=== PATIENT | female | born 1970 | race Caucasian/White ===

== ENCOUNTER 2016-06-19 13:51 | Emergency (ER) | payer OTHER ==
[2016-06-19 15:30] VITALS: BP 158/98
== END 2016-06-19 15:42 | disposition home or self-care (01) ==
LOC: ED 13:51
DX: G89.29 Other chronic pain (principal); M54.9 Dorsalgia, unspecified; J45.909 Unspecified asthma, uncomplicated; I10 Essential (primary) hypertension; Z98.51 Tubal ligation status
CPT/HCPCS: J1100; J2270; Q0162

== ENCOUNTER 2016-08-23 18:20 | Emergency (ER) | payer OTHER ==
[2016-08-23 20:18] VITALS: BP 127/94
== END 2016-08-23 20:18 | disposition home or self-care (01) ==
LOC: ED 18:20
DX: R05 Cough (principal); J45.909 Unspecified asthma, uncomplicated; G89.29 Other chronic pain; M54.9 Dorsalgia, unspecified; I10 Essential (primary) hypertension; Z88.6 Allergy status to analgesic agent

== ENCOUNTER 2016-09-07 15:51 | Emergency (ER) | payer OTHER ==
[2016-09-07 18:20] LABS: BASOPHIL % 0.4 % (0-2); PLATELET COUNT 247 x10^3mcL (130-400)
[2016-09-07 18:23] LABS: RED CELL DISTRIBUTION WIDTH 17.6 % (11.5-14.5)
[2016-09-07 18:26] LABS: CALCIUM 8.6 mg/dL (8.5-10.1); CARBON DIOXIDE 27.7 mmol/L (21-32); CHLORIDE SERUM 107 mmol/L (98-107); CREATININE SERUM 0.8 mg/dL (0.6-1.0); GFR1 > 60 mL/min; GLUCOSE SERUM 138 mg/dL (74-106); POTASSIUM SERUM 3.6 mmol/L (3.5-5.1); SODIUM SERUM 140 mmol/L (136-145)
[2016-09-07 18:31] LABS: ALBUMIN 3.3 g/dL (3.4-5.0); ALKALINE PHOSPHATASE 95 U/L (46-116); ALT/SGPT 39 U/L (14-59); AST/SGOT 31 U/L (15-37); BILIRUBIN TOTAL 0.3 mg/dL (0.20-1.00); TOTAL PROTEIN, SERUM 7.5 g/dL (6.4-8.2)
[2016-09-07 21:57] VITALS: BP 157/90
== END 2016-09-07 21:57 | disposition home or self-care (01) ==
LOC: ED 15:51
PROVIDERS: Emergency Medicine
DX: R05 Cough (principal); J45.909 Unspecified asthma, uncomplicated; I10 Essential (primary) hypertension; F99 Mental disorder, not otherwise specified; Z79.84 Long term (current) use of oral hypoglycemic drugs; Z88.8 Allergy status to other drugs, medicaments and biological substances
CPT/HCPCS: 85378; J7030; J7613; J7644; Q9967

== ENCOUNTER 2017-08-09 09:15 | Emergency (ER) | payer OTHER ==
[~2017-08-09] VITALS: Ht 157.5 cm; Wt 98.4 kg
[2017-08-09 09:18] VITALS: Ht 157.5 cm; Wt 98.4 kg
[2017-08-09 10:07] LABS: PLATELET COUNT 275 x10^3mcL (130-400)
[2017-08-09 10:10] LABS: RED CELL DISTRIBUTION WIDTH 17.6 % (11.5-14.5)
[2017-08-09 10:29] LABS: CALCIUM 8.5 mg/dL (8.5-10.1); CHLORIDE SERUM 101 mmol/L (98-107); CREATININE SERUM 0.9 mg/dL (0.6-1.0); GFR1 > 60 mL/min; GLUCOSE SERUM 130 mg/dL (74-106); POTASSIUM SERUM 4.1 mmol/L (3.5-5.1); SODIUM SERUM 139 mmol/L (136-145)
[2017-08-09 10:33] LABS: ALBUMIN 3.5 g/dL (3.4-5.0); ALKALINE PHOSPHATASE 120 U/L (46-116); ALT/SGPT 33 U/L (14-59); AMYLASE 41 U/L (25-115); AST/SGOT 31 U/L (15-37); BILIRUBIN TOTAL 0.8 mg/dL (0.20-1.00); LIPASE 74 IU/L (73-393)
[2017-08-09 10:36] LABS: TOTAL PROTEIN, SERUM 8.5 g/dL (6.4-8.2)
[2017-08-09 11:11] VITALS: BP 151/97
== END 2017-08-09 11:11 | disposition home or self-care (01) ==
LOC: ED 09:15
PROVIDERS: Emergency Medicine
DX: K29.70 Gastritis, unspecified, without bleeding (principal); I10 Essential (primary) hypertension; J45.909 Unspecified asthma, uncomplicated; G89.29 Other chronic pain; G54.9 Nerve root and plexus disorder, unspecified; Z88.2 Allergy status to sulfonamides
CPT/HCPCS: 36415; 83880; J1885; Q0162

== ENCOUNTER 2018-12-30 14:45 | Emergency (ER) | payer OTHER ==
[~2018-12-30] VITALS: Ht 154.9 cm; Wt 103.4 kg
[2018-12-30 14:48] VITALS: Ht 154.9 cm; Wt 103.4 kg
[2018-12-30 15:57] LABS: BASOPHIL % 0.2 % (0-2); PLATELET COUNT 269 x10^3mcL (130-400)
[2018-12-30 16:00] LABS: CALCIUM 8.3 mg/dL (8.5-10.1); CARBON DIOXIDE 27.9 mmol/L (21-32); CHLORIDE SERUM 105 mmol/L (98-107); CREATININE SERUM 0.8 mg/dL (0.6-1.0); GFR1 > 60 mL/min; GLUCOSE SERUM 151 mg/dL (74-106); POTASSIUM SERUM 3.7 mmol/L (3.5-5.1); SODIUM SERUM 141 mmol/L (136-145)
[2018-12-30 16:01] LABS: RED CELL DISTRIBUTION WIDTH 19.3 % (11.5-14.5)
[2018-12-30 16:04] LABS: ALBUMIN 3.4 g/dL (3.4-5.0); ALKALINE PHOSPHATASE 117 U/L (46-116); ALT/SGPT 40 U/L (14-59); AST/SGOT 37 U/L (15-37); BILIRUBIN TOTAL 0.3 mg/dL (0.20-1.00); CHOLESTEROL 161 mg/dL (<200); HDL CHOLESTEROL 41 mg/dL (40-60); PHOSPHOROUS 2.9 mg/dL (2.5-4.9); TOTAL PROTEIN, SERUM 7.6 g/dL (6.4-8.2)
[2018-12-30 17:13] VITALS: BP 146/72
== END 2018-12-30 17:14 | disposition home or self-care (01) ==
LOC: ED 14:45
PROVIDERS: Emergency Medicine
DX: B34.9 Viral infection, unspecified (principal); J45.909 Unspecified asthma, uncomplicated; I10 Essential (primary) hypertension; F32.9 Major depressive disorder, single episode, unspecified; M79.7 Fibromyalgia; Z88.8 Allergy status to other drugs, medicaments and biological substances
CPT/HCPCS: J1885; J7040; Q0092

== ENCOUNTER 2019-03-16 14:08 | Emergency (ER) | payer OTHER ==
[~2019-03-16] VITALS: Ht 154.9 cm; Wt 124.7 kg
[2019-03-16 14:38] VITALS: BP 162/97; Ht 154.9 cm; Wt 124.7 kg
== END 2019-03-16 16:30 | disposition home or self-care (01) ==
LOC: ED 14:08
DX: J45.909 Unspecified asthma, uncomplicated (principal); I10 Essential (primary) hypertension; G89.29 Other chronic pain; M79.7 Fibromyalgia; Z88.8 Allergy status to other drugs, medicaments and biological substances
CPT/HCPCS: J7512; J7613; J7644